=== PATIENT | female | born 1955 | race Caucasian/White ===

== ENCOUNTER 2020-04-24 15:28 | Emergency (ER) | payer OTHER ==
[2020-04-24 16:06] LABS: Absolute Neutrophil Ct (ANC) 4.92 (1.4-6.9); BASOPHIL % 0.3 % (0.0-0.4); Basophil (Absolute #) 0.02 (0-0.4); Eosinophil % 0.4 % (0.00-5.0); Eosinophil (Absolute #) 0.03 (0-0.5); Hematocrit 41.3 % (35-47); Lymphocyte (Absolute #) 1.45 (1.0-4.6); Lymphocytes % 20.1 % (24.0-44.0); Mean Corpuscular Hemoglobin 31.5 pg (26-32); Mean Corpuscular Hgb Concent. 33.9 g/dl (32-36); Monocyte (Absolute #) 0.81 (0.0-1.3); Monocytes % 11.2 % (0.0-12.0); Platelet Count 357 K/mm3 (150-450); Red Blood Count 4.44 M/mm3 (4.1-5.4); Red Cell Distribution Width 12.5 % (11.5-14.0); White Blood Count 7.2 K/mm3 (4.0-10.5)
[2020-04-24 16:13] LABS: ALKALINE PHOSPHATASE 66 U/L (38-126); ANION GAP 13.9 MEQ/L (5-15); BLOOD UREA NITROGEN 3 mg/dL (7-17); CHLORIDE 94 mmol/L (98-107); Calcium 9.2 mg/dL (8.4-10.2); Carbon Dioxide 28 mmol/L (22-30); Creatinine 1 0.45 mg/dL (0.52-1.04); Glucose 125 mg/dL (74-106); Potassium 3.5 mmol/L (3.5-5.1); SGOT/AST 28 U/L (14-36); SGPT/ALT 18 U/L (0-35); SODIUM 133 mmol/L (137-145); Total Protein 8.3 g/dL (6.3-8.2)
[2020-04-24 16:17] LABS: Appearance CLEAR (CLEAR); Bilirubin NEGATIVE (NEGATIVE); Blood NEGATIVE Ery/ul (0-5); Glucose 150 mg/dL (NEGATIVE); Ketones NEGATIVE (NEGATIVE); Leukocyte Esterase NEGATIVE (NEGATIVE); Nitrite NEGATIVE (NEGATIVE); Protein,Urine Dip NEGATIVE (Negative); Specific Gravity 1.002 (1.005-1.025); Urobilinogen NEGATIVE mg/dL (0-1)
--- NOTE | 2020-04-24 16:48 | ERPHSYRPT ---
- History of Present Illness Time Seen by Provider: 04/24/20 15:59 Source: patient Exam Limitations: no limitations Patient Subjective Stated Complaint: HTN Triage Nursing Assessment: Patient ambulated back to ED and transferred self to bed. Patient A+O X3. Patient's skin pink, warm and dry. Patient complains of high blood pressure that started this am. Patient states she was being treated for an ear infection and started on unknown atb and started feeling bad on Friday. Patient states her blood pressure was elevated today 177/84 with her not feeling well she went to Dr. Pereira sent patient to ER for eval. Patient' s lungs clear a/p jose. Heart tones audible. No edema noted. Physician History: 64 yo wf w increased BP x2 days. Pt states that she has not felt right. She has a mild headache but denies N/V/D/chest pain/fever/focal weakness/dysuria/ hematuria. She is currently being treated for ROM. Timing/Duration: other (2 days) Modifying Factors: Improves With: nothing Associated Symptoms: headaches, No nausea, No vomiting, No abdominal pain, No shortness of breath, No heartburn, No diaphoresis, No cough, No chills, No chest pain, No fever, No loss of appetite, No malaise, No rash, No syncope, No seizure, No weakness Allergies/Adverse Reactions: codeine Allergy (Verified 04/24/20 15:37) epinephrine Allergy (Verified 04/24/20 15:37) Home Medications: Levothyroxine Sodium 75 Mcg [Synthroid 75 Mcg] 50 mcg PO DAILY 01/31/16 [ History] Simvastatin 40 mg [Zocor 40 mg] 40 mg PO DAILY 01/31/16 [History] Alprazolam 0.25 mg [xanAX 0.25 MG] 1 tab PO Q4H PRN PRN 04/24/20 [History] Lisinopril 10 mg [Zestril 10 MG] 0.5 tab PO BID 04/24/20 [History] Hx Influenza Vaccination/Date Given: No Hx Pneumococcal Vaccination/Date Given: No Immunizations Up to Date: Yes Travel Risk - International Travel Have you traveled outside of the country in past 3 weeks: No Have you or anyone close to you been diagnosed with or: No Do your reside in a community with a known COVID-19 case?: Yes If Yes where:: [facility] - Coronavirus Screening Has patient experienced Coronavirus symptoms: No - Review of Systems Constitutional: No Symptoms Eyes: No Symptoms Ears, Nose, & Throat: No Symptoms Respiratory: No Symptoms Cardiac: No Symptoms Abdominal/Gastrointestinal: No Symptoms Genitourinary Symptoms: No Symptoms Musculoskeletal: No Symptoms Skin: No Symptoms Neurological: No Symptoms, Headache, No Dizziness, No Focal Weakness, No Irritability, No Lethargy, No Paralysis, No Parasthesia, No Seizure, No Sensory Changes, No Speech Changes, No Tics, No Tremors, No Vertigo Psychological: No Symptoms Endocrine: No Symptoms Hematologic/Lymphatic: No Symptoms Immunological/Allergic: No Symptoms - Past Medical History Pertinent Past Medical History: Yes Neurological History: No Pertinent History ENT History: No Pertinent History Cardiac History: Hypertension Endocrine Medical History: Hypothyroidism Musculoskeletal History: No Pertinent History GI Medical History: Other History: No Pertinent History Psycho-Social History: Anxiety Female Reproductive Disorders: No Pertinent History Other Medical History: Gastroparesis - Past Surgical History Past Surgical History: Yes Neuro Surgical History: No Pertinent History Cardiac: No Pertinent History Respiratory: No Pertinent History Gastrointestinal: Cholecystectomy Genitourinary: No Pertinent History Musculoskeletal: No Pertinent History Female Surgical History: No Pertinent History - Social History Smoking Status: Never smoker Exposure to second hand smoke: Yes Drug Use: none Patient Lives Alone: No - Female History Hx Last Menstrual Period: ablation Hx Now: No - Nursing Vital Signs Nursing Vital Signs: Initial Vital Signs Temperature 98.0 F 04/24/20 15:42 Pulse Rate 92 H 04/24/20 15:42 Respiratory Rate 18 04/24/20 15:42 Blood Pressure 178/90 04/24/20 15:42 O2 Sat by Pulse Oximetry 100 04/24/20 15:42 Pain Scale Pain Intensity 0 - Physical Exam General Appearance: no apparent distress Eye Exam: PERRL/EOMI, eyes nml inspection, No scleral icterus Ears, Nose, Throat Exam: normal ENT inspection, TMs normal, pharynx normal, moist mucous membranes Neck Exam: normal inspection, non-tender, supple, full range of motion Respiratory Exam: normal breath sounds, lungs clear, airway intact, No respiratory distress Cardiovascular Exam: regular rate/rhythm, normal heart sounds, normal peripheral pulses Gastrointestinal/Abdomen Exam: soft, normal bowel sounds, No tenderness, No distention Pelvic Exam: not done Rectal Exam: deferred Back Exam: normal inspection, normal range of motion Extremity Exam: normal inspection, normal range of motion, No pedal edema, No swelling Neurologic Exam: alert, oriented x 3, cooperative, ecd II-XII nml as tested, normal mood/affect, nml cerebellar function, nml station & gait, sensation nml, motor deficits Skin Exam: normal color, warm, dry Lymphatic Exam: No adenopathy SpO2 Interpretation: normal SpO2: 100 O2 Delivery: Room Air - Course Nursing assessment & vital signs reviewed: Yes EKG Interpreted by Me: Other (NSR/Mildly increased QTc/No acute ST-T wave changes) - Radiology Exams Chest X-ray Interpretation: Discussed w/ radiologist (Nothing acute) - CT Exams Head CT Interpretation: Discussed w/radiologist, Other (Nothing acute) Ordered Tests: Active Orders 24 hr Category Date Time Status EKG-ER Only STAT Care 04/24/20 15:59 Active CHEST 2 VIEWS (PA AND LAT) Stat Exams 04/24/20 16:00 Completed HEAD WITHOUT CONTRAST [CT] Stat Exams 04/24/20 16:01 Completed CBC W DIFF Stat Lab 04/24/20 15:40 Completed CMP Stat Lab 04/24/20 15:40 Completed Lactic Acid Stat Lab 04/24/20 16:05 Completed TROPONIN Q3H Lab 04/24/20 15:40 Completed TROPONIN Q3H Lab 04/24/20 19:00 Ordered TROPONIN Q3H Lab 04/24/20 22:00 Ordered TROPONIN Q3H Lab 04/25/20 01:00 Ordered TROPONIN Q3H Lab 04/25/20 04:00 Ordered TSH [TSH, 3RD Generation] Stat Lab 04/24/20 15:40 Completed UA W/RFX UR CULTURE Stat Lab 04/24/20 15:40 Completed Lab/Rad Data: Laboratory Result Diagrams 04/24/20 15:40 04/24/20 15:40 Laboratory Results 04/24/20 04/24/20 04/24/20 Range/Units 16:05 15:40 15:40 WBC (4.0-10.5) K/mm3 RBC (4.1-5.4) M/mm3 Hgb (12.0-16.0) gm/dl Hct (35-47) % MCV (78-100) fl MCH (26-32) pg MCHC (32-36) g/dl RDW (11.5-14.0) % Plt Count (150-450) K/mm3 MPV (7.5-11.0) fl Gran % (36.0-66.0) % Eos # (Auto) (0-0.5) Absolute Lymphs (auto) (1.0-4.6) Absolute Monos (auto) (0.0-1.3) Lymphocytes % (24.0-44.0) % Monocytes % (0.0-12.0) % Eosinophils % (0.00-5.0) % Basophils % (0.0-0.4) % Absolute Granulocytes (1.4-6.9) Basophils # (0-0.4) Sodium (137-145) mmol/L Potassium (3.5-5.1) mmol/L Chloride (98-107) mmol/L Carbon Dioxide (22-30) mmol/L Anion Gap (5-15) MEQ/L BUN (7-17) mg/dL Creatinine (0.52-1.04) mg/dL Estimated GFR ML/MIN Glucose (74-106) mg/dL Lactic Acid 1.7 (0.4-2.0) Calcium (8.4-10.2) mg/dL Total Bilirubin (0.2-1.3) mg/dL AST (14-36) U/L ALT (0-35) U/L Alkaline Phosphatase (38-126) U/L Troponin I (0.000-0.034) ng/mL Serum Total Protein (6.3-8.2) g/dL Albumin (3.5-5.0) g/dL TSH 3rd Generation 8.040 H (0.47-4.68) mIU/L Urine Color COLORLESS (YELLOW) Urine Appearance CLEAR (CLEAR) Urine pH 8.0 (5-6) Ur Specific [place] 1.002 (1.005-1.025) Urine Protein NEGATIVE (Negative) Urine Ketones NEGATIVE (NEGATIVE) Urine Blood NEGATIVE (0-5) Marquez/ul Urine Nitrite NEGATIVE (NEGATIVE) Urine Bilirubin NEGATIVE (NEGATIVE) Urine Urobilinogen NEGATIVE (0-1) mg/dL Ur Leukocyte Esterase NEGATIVE (NEGATIVE) Urine WBC (Auto) NONE (0-5) /HPF Urine RBC (Auto) NONE (0-2) /HPF U Epithel Cells (Auto) NONE (FEW) /HPF Urine Bacteria (Auto) NONE (NEGATIVE) /HPF Urine Culture Reflexed NO (NO) Urine Glucose 150 (NEGATIVE) mg/dL 04/24/20 04/24/20 04/24/20 Range/Units 15:40 15:40 15:40 WBC 7.2 (4.0-10.5) K/mm3 RBC 4.44 (4.1-5.4) M/mm3 Hgb 14.0 (12.0-16.0) gm/dl Hct 41.3 (35-47) % MCV 93.0 (78-100) fl MCH 31.5 (26-32) pg MCHC 33.9 (32-36) g/dl RDW 12.5 (11.5-14.0) % Plt Count 357 (150-450) K/mm3 MPV 10.0 (7.5-11.0) fl Gran % 68.0 H (36.0-66.0) % Eos # (Auto) 0.03 (0-0.5) Absolute Lymphs (auto) 1.45 (1.0-4.6) Absolute Monos (auto) 0.81 (0.0-1.3) Lymphocytes % 20.1 L (24.0-44.0) % Monocytes % 11.2 (0.0-12.0) % Eosinophils % 0.4 (0.00-5.0) % Basophils % 0.3 (0.0-0.4) % Absolute Granulocytes 4.92 (1.4-6.9) Basophils # 0.02 (0-0.4) Sodium 133 L (137-145) mmol/L Potassium 3.5 (3.5-5.1) mmol/L Chloride 94 L (98-107) mmol/L Carbon Dioxide 28 (22-30) mmol/L Anion Gap 13.9 (5-15) MEQ/L BUN 3 L (7-17) mg/dL Creatinine 0.45 L (0.52-1.04) mg/dL Estimated GFR > 60.0 ML/MIN Glucose 125 H (74-106) mg/dL Lactic Acid (0.4-2.0) Calcium 9.2 (8.4-10.2) mg/dL Total Bilirubin 0.40 (0.2-1.3) mg/dL AST 28 (14-36) U/L ALT 18 (0-35) U/L Alkaline Phosphatase 66 (38-126) U/L Troponin I < 0.012 (0.000-0.034) ng/mL Serum Total Protein 8.3 H (6.3-8.2) g/dL Albumin 5.0 (3.5-5.0) g/dL TSH 3rd Generation (0.47-4.68) mIU/L Urine Color (YELLOW) Urine Appearance (CLEAR) Urine pH (5-6) Ur Specific [place] (1.005-1.025) Urine Protein (Negative) Urine Ketones (NEGATIVE) Urine Blood (0-5) Marquez/ul Urine Nitrite (NEGATIVE) Urine Bilirubin (NEGATIVE) Urine Urobilinogen (0-1) mg/dL Ur Leukocyte Esterase (NEGATIVE) Urine WBC (Auto) (0-5) /HPF Urine RBC (Auto) (0-2) /HPF U Epithel Cells (Auto) (FEW) /HPF Urine Bacteria (Auto) (NEGATIVE) /HPF Urine Culture Reflexed (NO) Urine Glucose (NEGATIVE) mg/dL - Progress Progress: improved Progress Note: 04/24/20 17:46 Pt stable throughout stay w systolic bp 141 before discharge without tx. TSH slightly elevated but will leave to PCP to up Synthyroid. - Departure Departure Disposition: Home Clinical Impression: Hypertension, Anxiety Condition: Stable Critical Care Time: No Referrals: SUMI CHOWDARY DO [Primary Care Provider] - Additional Instructions: Follow up with your family MD in 1-2 days. Continue with Lisinopril twice a day. Xanax as needed. Return to ER for focal weakness/chest pain/shortness of breath/systolic blood pressure greater than 190/Diastolic blood pressure greater than 110
--- NOTE | 2020-04-24 16:58 | XRAY ---
Indication: Headache and lethargy. Hypotension. Comparison: None PA/lateral chest demonstrates normal heart and lungs. Bony thorax intact with mild degenerative changes. Impression: Nonacute chest.
--- NOTE | 2020-04-24 17:01 | XRAY ---
Indication: Headache and face numbness. Hypo-pressure. Multiple contiguous axial images obtained through the head without contrast. Comparison: None Posterior right temporal lobe demonstrates 1.5 cm round chunky calcification without edema/mass effect favored to be benign and probable sequela to old inflammation/infection. No acute intracranial hemorrhage, abnormal extra-axial fluid collection, or mass effect. Fourth ventricle is midline without hydrocephalus. Guzman-white matter differentiation preserved. Bony calvarium intact. Visualized paranasal sinuses and mastoid air cells are clear. Impression: Benign chunky calcification in the right temporal lobe. Remaining CT head without contrast exam is negative.
[2020-04-24 17:56] VITALS: BP 156/86; PULSE 72; O2SAT 99
== END 2020-04-24 18:00 | disposition home or self-care (01) ==
LOC: ED 15:28
DX: I10 Essential (primary) hypertension (principal); F41.9 Anxiety disorder, unspecified; R51 Headache; E03.9 Hypothyroidism, unspecified; R94.6 Abnormal results of thyroid function studies
CPT/HCPCS: 36000; 36415; 70450; 71046; 80053; 81001; 83605; 84443; 84484; 85025; 93005; 99284

== ENCOUNTER 2023-11-21 14:32 | Emergency (ER) | payer MEDICARE ==
--- NOTE | 2023-11-21 14:38 | ERPHSYRPT ---
- History of Present Illness Time Seen by Provider: 11/21/23 14:38 Historian: patient Exam Limitations: no limitations Physician History: This is a thin 68-year-old white female patient of Dr. Britt who was sent over to our emergency department from the urgent care clinic where the patient was complaining of 1 week history of mucousy blood-tinged passage rectally wi thout significant stool present. Patient has a chronic history of constipation intermittently over the last several years. Patient reports a normal colonoscopy from a few years ago. Patient states she does not eat much. She has lost weight. Patient states that she does not eat much because it causes her to have cramping pain and has been diagnosed with gastroparesis in the past. Patient has a history of hyperlipidemia, hypertension, hypothyroidism and anxiety. Patient's constipation has not responded to milk of magnesia and MiraLAX. Patient has associated bilateral low back pain Timing/Duration: week(s) (1), worse Quality: other (Toe pain and pressure) Pain Radiation: no radiation Severity of Pain-Max: mild Severity of Pain-Current: mild Associated Symptoms: other (Bilateral lower back achiness and pressure) Previous symptoms: no prior history, no recent treatment Allergies/Adverse Reactions: codeine Allergy (Verified 11/21/23 14:57) epinephrine Allergy (Verified 11/21/23 14:57) Home Medications: Levothyroxine Sodium 75 Mcg [Synthroid 75 Mcg] 75 mcg PO DAILY 01/31/16 [History] Simvastatin 40 mg [Zocor 40 mg] 10 mg PO DAILY 01/31/16 [History] Lisinopril 10 mg [Zestril 10 MG] 0.5 tab PO BID 04/24/20 [History] Escitalopram Oxalate [Lexapro] 10 mg PO QAM 11/21/23 [History] Hx Influenza Vaccination/Date Given: No Hx Pneumococcal Vaccination/Date Given: No Travel Risk - International Travel Have you traveled outside of the country in past 3 weeks: No - Coronavirus Screening Are you exhibiting any of the following symptoms?: No Close contact with a COVID-19 positive Pt in past 14-21 Days: No - Review of Systems Constitutional: No Symptoms Eyes: No Symptoms Ears, Nose, & Throat: No Symptoms Respiratory: No Symptoms Cardiac: No Symptoms Abdominal/Gastrointestinal: Hematochezia (With mucousy passage of rectally) Genitourinary Symptoms: No Symptoms Musculoskeletal: Back Pain (Lower back pain/pressure) Skin: No Symptoms Neurological: No Symptoms Psychological: No Symptoms Endocrine: No Symptoms Hematologic/Lymphatic: No Symptoms Immunological/Allergic: No Symptoms All Other Systems: Reviewed and Negative - Past Medical History Pertinent Past Medical History: Yes Neurological History: No Pertinent History ENT History: No Pertinent History Cardiac History: Hypertension Endocrine Medical History: Hypothyroidism Musculoskeletal History: No Pertinent History GI Medical History: Other History: No Pertinent History Psycho-Social History: Anxiety Female Reproductive Disorders: No Pertinent History Other Medical History: Gastroparesis - Past Surgical History Past Surgical History: Yes Neuro Surgical History: No Pertinent History Cardiac: No Pertinent History Respiratory: No Pertinent History Gastrointestinal: Cholecystectomy Genitourinary: No Pertinent History Musculoskeletal: No Pertinent History Female Surgical History: No Pertinent History - Social History Smoking Status: Never smoker Exposure to second hand smoke: Yes Drug Use: none Patient Lives Alone: No - Nursing Vital Signs Nursing Vital Signs: Initial Vital Signs Temperature 98.4 F 11/21/23 14:36 Pulse Rate 84 11/21/23 14:36 Respiratory Rate 16 11/21/23 14:36 Blood Pressure 156/84 11/21/23 14:36 O2 Sat by Pulse Oximetry 94 L 11/21/23 14:36 Pain Scale Pain Intensity 5 - Physical Exam General Appearance: no apparent distress, alert, anxiety, thin Eye Exam: PERRL/EOMI, eyes nml inspection Ears, Nose, Throat Exam: normal ENT inspection, moist mucous membranes Neck Exam: normal inspection, non-tender, supple, full range of motion Respiratory Exam: normal breath sounds, lungs clear, respiratory distress, No chest tenderness Cardiovascular Exam: regular rate/rhythm, normal heart sounds, normal peripheral pulses Gastrointestinal/Abdomen Exam: soft, normal bowel sounds, No tenderness Pelvic Exam: not done Rectal Exam: not done Back Exam: normal inspection, normal range of motion, No CVA tenderness, No vertebral tenderness Extremity Exam: normal inspection, normal range of motion, pelvis stable Neurologic Exam: alert, oriented x 3, cooperative, pens and pencils dipper II-XII nml as tested, normal mood/affect, nml cerebellar function, nml station & gait, sensation nml Skin Exam: normal color, warm, dry Lymphatic Exam: No adenopathy SpO2 Interpretation: normal O2 Delivery: Room Air - Course Nursing assessment & vital signs reviewed: Yes Ordered Tests: Active Orders 24 hr Category Date Time Status ABDOMEN AND PELVIS W/0 CONTRAS [CT] Stat Exams 11/21/23 14:57 Taken AMYLASE Stat Lab 11/21/23 15:15 Completed CBC W DIFF Stat Lab 11/21/23 15:15 Completed CMP Stat Lab 11/21/23 15:15 Completed LIPASE Stat Lab 11/21/23 15:15 Completed Medication Summary Discontinued Medications Generic Name Dose Route Start Last Admin Trade Name Freq PRN Reason Stop Dose Admin Potassium Chloride 20 meq 11/21/23 16:16 Potassium Chloride Tab 10 Meq Tab PO 11/21/23 16:17 STAT ONE Lab/Rad Data: Laboratory Result Diagrams 11/21/23 15:15 11/21/23 15:15 Laboratory Results 11/21/23 11/21/23 Range/Units 15:15 15:15 WBC 7.0 (4.0-10.5) x10^3/uL RBC 4.17 (4.1-5.4) x10^6/uL Hgb 12.9 (12.0-16.0) g/dL Hct 38.9 (35-47) % MCV 93.3 (78-100) fL MCH 30.9 (26-32) pg MCHC 33.2 (32-36) g/dL RDW 12.2 (11.5-14.0) % Plt Count 253 (150-450) x10^3/uL MPV 9.6 (7.5-11.0) fL Gran % 63.8 (36.0-66.0) % Immature Gran % (Auto) 0.9 H (0.00-0.4) % Nucleat RBC Rel Count 0.0 (0.00-0.1) % Eos # (Auto) 0.26 (0-0.5) x10^3/uL Immature Gran # (Auto) 0.06 H (0.00-0.03) x10^3u/L Absolute Lymphs (auto) 1.35 (1.0-4.6) x10^3/uL Absolute Monos (auto) 0.83 (0.0-1.3) x10^3/uL Absolute Nucleated RBC 0.00 (0.00-0.01) x10^3u/L Lymphocytes % 19.2 L (24.0-44.0) % Monocytes % 11.8 (0.0-12.0) % Eosinophils % 3.7 (0.00-5.0) % Basophils % 0.6 (0.0-0.4) % Absolute Granulocytes 4.50 (1.4-6.9) x10^3/uL Basophils # 0.04 (0-0.4) x10^3/uL Sodium 130 L (137-145) mmol/L Potassium 3.3 L (3.5-5.1) mmol/L Chloride 93 L (98-107) mmol/L Carbon Dioxide 32 H (22-30) mmol/L Anion Gap 8.2 (5-15) MEQ/L BUN 4 L (7-17) mg/dL Creatinine 0.55 (0.52-1.04) mg/dL Estimated GFR 101.0 ML/MIN Glucose 103 (74-106) mg/dL Calcium 8.7 (8.4-10.2) mg/dL Total Bilirubin 0.70 (0.2-1.3) mg/dL AST 28 (14-36) U/L ALT 18 (0-35) U/L Alkaline Phosphatase 87 (38-126) U/L Serum Total Protein 7.4 (6.3-8.2) g/dL Albumin 4.4 (3.5-5.0) g/dL Amylase 44 (30-110) U/L Lipase 31 (23-300) U/L - Progress Progress Note: 11/21/23 15:06 This patient's medical issue is 1 of moderate complexity. The level complex in the workup performed is based on review the patient's past medical history, review the patient's medication list, review of the patient's drug allergy list and history of present illness and physical findings on examination. The workup includes CBC, CMP, amylase, lipase and CT scan of the abdomen pelvis. We will evaluate and look for evidence of fecal stasis/'s stool in the left/sigmoid colon and rectum. If there is significant stool in this area, we will order a soapsuds enema. Patient will need, at some point, referral to gastroenterology. I briefly discussed this with the patient. 11/21/23 16:17 I reviewed and interpreted the laboratory data results. This patient has mild hypokalemia and mild hyponatremia. The CT scan of the abdomen pelvis without contrast was interpreted by the radiologist and I reviewed the impression. Patient states mild fecal stasis with mild proctitis. The mild proctitis likely is the cause of this patient's local anorectal discomfort and passage of bloody mucousy stool. We will remotely send a prescription to her pharmacy to help treat this. Counseled pt/family regarding: lab results, diagnosis, need for follow-up, rad results Medical Desision Making - Diagnostic Testing Diagnostic test were ordered, analyzed, and reviewed by me: Yes Radiological Interpretation: Reviewed by me, Teleradiologist Report - Risk of complications The pt has a mod risk of morbidity or mortality based on: Need for prescription drug management - Departure Departure Disposition: Home Clinical Impression: Proctitis, Hyponatremia, Hypokalemia Condition: Stable Critical Care Time: No Referrals: YOSEF BRITT DO [Primary Care Provider] - Follow up/PCP as directed Additional Instructions: Take your medications as prescribed. Sitz bath with warm soapy water or Epsom salts 2 times a day. Call your primary care provider on November 25 to make arranges for follow-up appointment in the next 3 to 5 days for referral to a radiology physician assistant. Prescriptions: Prednisone 10 mg [Deltasone 10 mg] 10 mg PO TID #12 tablet Doxycycline Hyclate 100 mg [Vibramycin 100 MG] 100 mg PO BID #14 tab
[2023-11-21 14:46] VITALS: PULSE 84; RESP 16; TEMP 98.4
[2023-11-21 15:22] LABS: BASOPHIL % 0.6 % (0.0-0.4); Basophil (Absolute #) 0.04 x10^3/uL (0-0.4); Eosinophil % 3.7 % (0.00-5.0); Eosinophil (Absolute #) 0.26 x10^3/uL (0-0.5); Hematocrit 38.9 % (35-47); Hemoglobin 12.9 g/dL (12.0-16.0); IMMATURE GRAN # 0.06 x10^3u/L (0.00-0.03); IMMATURE GRAN % 0.9 % (0.00-0.4); Lymphocyte (Absolute #) 1.35 x10^3/uL (1.0-4.6); Lymphocytes % 19.2 % (24.0-44.0); Mean Cell Volume 93.3 fL (78-100); Mean Corpuscular Hemoglobin 30.9 pg (26-32); Mean Corpuscular Hgb Concent. 33.2 g/dL (32-36); Mean Platelet Volume 9.6 fL (7.5-11.0); Monocyte (Absolute #) 0.83 x10^3/uL (0.0-1.3); Monocytes % 11.8 % (0.0-12.0); Neutrophil % 63.8 % (36.0-66.0); Platelet Count 253 x10^3/uL (150-450); Red Blood Count 4.17 x10^6/uL (4.1-5.4); Red Cell Distribution Width 12.2 % (11.5-14.0)
[2023-11-21 15:32] LABS: ALBUMIN 4.4 g/dL (3.5-5.0); ANION GAP 8.2 MEQ/L (5-15); BILIRUBIN,TOTAL 0.7 mg/dL (0.2-1.3); Calcium 8.7 mg/dL (8.4-10.2); Creatinine 1 0.55 mg/dL (0.52-1.04); Potassium 3.3 mmol/L (3.5-5.1); Total Protein 7.4 g/dL (6.3-8.2)
[2023-11-21 16:12] VITALS: BP 136/72; O2SAT 98
[2023-11-21] MEDS ORDERED: Klor Con PO ONE ×2 (16:16→16:20)
--- NOTE | 2023-11-21 21:37 | XRAY ---
Indication: Constipation. Rectal pain. Bloody stool. Multiple contiguous axial images obtained through the abdomen and pelvis without contrast. Comparison: None Lung bases clear. Heart not enlarged. Noncontrasted stomach and bowel loops appear nonobstructed. Appendix not visualized. Mild diffuse scattered colonic fecal debris. Rectum demonstrates circumferential wall thickening with perirectal stranding favoring proctitis. No free fluid/air. Small hepatic calcified granuloma and cholecystectomy. Remaining liver, pancreas, spleen, adrenal glands, kidneys, ureters, bladder, and aorta are unremarkable for noncontrast exam. Osseous structures intact with minimal/mild degenerative changes throughout the spine. Bilateral L5 spondylolysis with 7 mm anterolisthesis. Impression: 1. Rectal circumferential wall thickening with perirectal stranding favoring proctitis. 2. Mild diffuse fecal stasis. 3. Multilevel degenerative spondylosis and L5 spondylolysis with grade 2 listhesis.
== END 2023-11-21 16:36 | disposition home or self-care (01) ==
LOC: ED 14:32
DX: K62.89 Other specified diseases of anus and rectum (principal); E87.1 Hypo-osmolality and hyponatremia; E87.6 Hypokalemia; E78.5 Hyperlipidemia, unspecified; I10 Essential (primary) hypertension; M54.50 Low back pain, unspecified; Z79.52 Long term (current) use of systemic steroids; Z79.899 Other long term (current) drug therapy
CPT/HCPCS: 36415; 74176; 80053; 82150; 83690; 85025; 99283; A9270-GY

== ENCOUNTER 2023-12-30 05:56 | Day surgery (SDC) | payer MEDICARE ==
[2023-12-30 06:23] VITALS: RESP 16; O2SAT 100
[2023-12-30] MEDS ORDERED: Lactated Ringers 1,000 ML IV SCH (06:30)
[2023-12-30] MEDS ORDERED: DIPRIVAN 200 MG/20 ML IV ONE ×2 (07:20→07:52)
[2023-12-30] MEDS ORDERED: Versed 2 MG/2 ML Injection ONE (07:20)
[2023-12-30 08:28] VITALS: TEMP 97.3
--- NOTE | 2023-12-30 08:33 | OP ---
SURGERY DATE/TIME: 12/30/2023 0731 PREOPERATIVE DIAGNOSIS: Screening exam. POSTOPERATIVE DIAGNOSIS: Normal colon. PROCEDURE: Colonoscopy. SURGEON: Dr. Muniz. ANESTHESIA: Medications given by anesthesia department. HISTORY: The patient is a 68-year-old white female presenting now for screening colonoscopy. The patient reports no particular problems at this time. The patient was described the risks of the procedure including the risk of perforation, phlebitis, untoward reaction to medication, bleeding and missed lesions. The patient verbalized her understanding and desired to have the procedure performed. DESCRIPTION OF PROCEDURE: The patient was given the medications by the anesthesia department. She had continuous pulse oximetry, ECG monitoring and intermittent blood pressure monitoring during the examination. She was placed in the left lateral decubitus position. A digital rectal examination revealed normal anal sphincter tone and no masses. External hemorrhoids were noted. The flexible Olympus pediatric colonoscope was used to intubate the rectum. A view of the colon was developed sequentially to the cecum. Upon insertion and withdrawal, including a retroflex view in the rectum, no mucosal lesions were encountered. The scope was removed from the patient who tolerated the procedure well and was sent back to OP recovery in good condition. The prep was noted to be fair to good with large amounts of liquid stool in the colon which was suctioned clear to provide a good visualization of the colon.
[2023-12-30 08:45] VITALS: BP 138/68; PULSE 60
== END 2023-12-30 08:58 | disposition home or self-care (01) ==
LOC: SDC 05:56
PROVIDERS: ATTEND Family Medicine
DX: Z12.11 Encounter for screening for malignant neoplasm of colon (principal); K64.4 Residual hemorrhoidal skin tags
CPT/HCPCS: 93005; G0121; J2250; J2704

== ENCOUNTER 2024-11-29 21:34 | Observation (INO) | payer MEDICARE ==
[2024-11-29 23:12] LABS: Appearance Cloudy (Clear); Bacteria None Seen /HPF (None Seen); Bilirubin Negative (Negative); Blood Small (Negative); Epithelial Cells Rare /HPF (None Seen); Glucose, Urine Negative (Negative); Ketones 15 (Negative); Leukocyte Esterase Small (Negative); Nitrite Negative (Negative); Ph 5.5 (4.6-8.0); Protein,Urine Dip Trace (Negative); Specific Gravity 1.015 (1.005-1.030); Urobilinogen 0.2 mg/dL (0.2)
[2024-11-29 23:20] LABS: Absolute Neutrophil Ct (ANC) 13.23 x10^3/uL (1.56-6.13); BASOPHIL % 0.1 % (0.1-1.2); Basophil (Absolute #) 0.02 x10^3/uL (0.01-0.08); Eosinophil % 0.1 % (0.7-5.8); Eosinophil (Absolute #) 0.02 x10^3/uL (0.04-0.36); Hematocrit 41.9 % (34.1-44.9); Hemoglobin 14.2 g/dL (11.2-15.7); IMMATURE GRAN # 0.07 x10^3u/L (0.001-0.031); IMMATURE GRAN % 0.5 % (0.001-0.429); Lymphocyte (Absolute #) 0.19 x10^3/uL (1.18-3.74); Lymphocytes % 1.3 % (19.3-51.7); Mean Cell Volume 89.9 fL (79.4-94.8); Mean Corpuscular Hemoglobin 30.5 pg (25.6-32.2); Mean Corpuscular Hgb Concent. 33.9 g/dL (32.2-35.5); Mean Platelet Volume 9.2 fL (9.4-12.3); Monocyte (Absolute #) 0.67 x10^3/uL (0.24-0.86); Monocytes % 4.7 % (4.7-12.5); Neutrophil % 93.3 % (34.0-71.1); Platelet Count 257 x10^3/uL (182-369); Red Blood Count 4.66 x10^6/uL (3.93-5.22); Red Cell Distribution Width 12.3 % (11.7-14.4); White Blood Count 14.2 x10^3/uL (3.98-10.04)
[2024-11-29] MEDS ORDERED: Zofran 4 MG/2 ML VIAL ONE (23:31)
[2024-11-29] MEDS: Sodium Chloride 0.9% 1000 ML 1,000 ML IV SCH (23:34)
[2024-11-29] MEDS: Zofran 4 MG/2 ML VIAL IV ONE (23:34)
[2024-11-29 23:35] LABS: ALBUMIN 4.5 g/dL (3.5-5.0); ANION GAP 11.4 MEQ/L (5-15); BILIRUBIN,TOTAL 0.6 mg/dL (0.2-1.3); Calcium 9.2 mg/dL (8.4-10.2); Creatinine 1 0.6 mg/dL (0.52-1.04); EST GLOMERULAR FILTRATION RATE 98.3 ML/MIN; Potassium 4.2 mmol/L (3.5-5.1); Total Protein 7.1 g/dL (6.3-8.2)
[2024-11-29 23:52] LABS: Slide Review 1 YES
[2024-11-29 23:56] LABS: INFLUENZA A NEGATIVE (NEGATIVE); INFLUENZA B NEGATIVE (NEGATIVE); RESPIRATORY SYNCTIAL VIRUS NEGATIVE (NEGATIVE); SARS-CoV-2 Xpert Express NEGATIVE (NEGATIVE)
--- NOTE | 2024-11-30 00:07 | XRAY ---
CLINICAL HISTORY: pain COMPARISON: 21 November 2023. TECHNIQUE: Contiguous axial images were obtained from the level of the diaphragm to the pubic symphysis without intravenous or oral contrast. Coronal and sagittal reconstructions were likewise performed and indicated to increase the sensitivity for detecting clinically relevant pathology. CT scan was performed according to ALARA (as low as reasonably achievable). FINDINGS: The visualized lung bases are clear. Evaluation of the abdominal and pelvic visceral organs is limited without intravenous contrast. The unenhanced liver is grossly unremarkable. Stable calcified focus along subdiaphragmatic aspect is noted on the right side, possible calcified granuloma within the liver. Gallbladder is not visualized, cholecystectomy status. The unenhanced spleen is grossly unremarkable. The unenhanced pancreas is grossly unremarkable. The adrenal glands are grossly unremarkable. The kidneys are normal in size. There is no hydronephrosis. No perinephric stranding is seen. The ureters are normal in caliber. No evidence of focal or diffuse bowel wall thickening or evidence of bowel obstruction is seen. The urinary bladder is normal in contour. No adenopathy or fluid collections are seen. Pelvic viscera are grossly unremarkable. The aorta is normal in caliber. No aggressive appearing osseous lesions are identified. Unchanged grade II anterolisthesis of L5 over S1 vertebra with bilateral spondylolysis. Severe bilateral neural foraminal stenosis is noted at this level. Rest of the findings are unchanged compared to the previous CT scan. IMPRESSION: 1. No acute abnormality detected. 2. Stable calcified focus along subdiaphragmatic aspect is noted on the right side, possible calcified granuloma within the liver. 3. Previous study revealed mesorectal and presacral fat stranding. This is not seen in the current study. 4. Unchanged grade II anterolisthesis of L5 over S1 vertebra with bilateral spondylolysis. Severe bilateral neural foraminal stenosis is noted at this level. 5. Fecal loading of large bowel is seen. No significant interval new finding is noted as compared to the previous CT scan. Electronically Signed by: Kleber Delacruz MD. (11/30/2024 00:03:40 EST)
--- NOTE | 2024-11-30 00:16 | ERPHSYRPT ---
- History of Present Illness Time Seen by Provider: 11/29/24 22:50 Source: patient Exam Limitations: no limitations Patient Subjective Stated Complaint: since 6pm tonight, vomiting and dry heaves, belly pain all over Triage Nursing Assessment: Pt ambulated into ER without diff, spouse at bedside. Pt c/o nausea since 10am and vomiting began around 6pm tonight. Pt c/o "belly gurgling", denies any diarrhea. Abd soft, flat with hyperactive bs x4 quad, nontender on palpation. Physician History: 69-year-old female presents to our ED for evaluation of nausea vomiting abdominal pain. Patient reports her nausea started at approximately 10 AM this morning. However she began to vomit at around 6 PM this evening. Patient complains of diffuse abdominal pain. No trauma no fever. No diarrhea no rash. Symptoms are constant. Symptoms are moderate in intensity. No specific worsening or improving factors. Patient denies a history of the same. She otherwise feels well. at bedside. They voiced no other complaints or concerns at this time. Portions of this note were created with voice recognition technology. There may be grammatical, spelling, punctuation or sound alike errors Timing/Duration: today Severity: moderate Modifying Factors: Improves With: nothing Associated Symptoms: denies symptoms Allergies/Adverse Reactions: codeine Allergy (Intermediate, Verified 11/29/24 22:45) Nausea and Vomiting epinephrine Allergy (Intermediate, Verified 11/29/24 22:45) unknown Home Medications: Levothyroxine Sodium 75 Mcg [Synthroid 75 Mcg] 50 mcg PO DAILY 01/31/16 [History] Simvastatin 40 mg [Zocor 40 mg] 10 mg PO HS 01/31/16 [History] Lisinopril 10 mg [Zestril 10 MG] 0.5 tab PO DAILY 04/24/20 [History] ALPRAZolam 0.25 MG [xanAX 0.25 MG] 0.25 mg PO UD PRN 12/11/23 [History] PARoxetine HCL [Paroxetine HCl] 10 mg PO DAILY 12/11/23 [History] Hx Tetanus, Diphtheria Vaccination/Date Given: Yes Hx Influenza Vaccination/Date Given: No Hx Pneumococcal Vaccination/Date Given: No Travel Risk - International Travel Have you traveled outside of the country in past 3 weeks: No - Emerging Infectious Disease Are you exhibiting symptoms associated with any current EIDs: Yes Symptoms: Abdominal Pain, Headaches/Body Aches/, Vomitting - Review of Systems Constitutional: No Symptoms, No Fever, No Chills Eyes: No Symptoms Ears, Nose, & Throat: No Symptoms Respiratory: No Symptoms, No Cough, No Dyspnea Cardiac: No Symptoms, No Chest Pain, No Edema, No Syncope Abdominal/Gastrointestinal: No Symptoms, No Abdominal Pain, No Nausea, No Vomiting, No Diarrhea Genitourinary Symptoms: No Symptoms, No Dysuria Musculoskeletal: No Symptoms, No Back Pain, No Neck Pain Skin: No Symptoms, No Rash Neurological: No Symptoms, No Dizziness, No Focal Weakness, No Sensory Changes Psychological: No Symptoms Endocrine: No Symptoms Hematologic/Lymphatic: No Symptoms Immunological/Allergic: No Symptoms All Other Systems: Reviewed and Negative - Past Medical History Pertinent Past Medical History: Yes Neurological History: No Pertinent History ENT History: No Pertinent History Cardiac History: High Cholesterol, Hypertension Endocrine Medical History: Hypothyroidism Musculoskeletal History: No Pertinent History GI Medical History: Gallbladder Disease, Other History: No Pertinent History Psycho-Social History: Anxiety Female Reproductive Disorders: No Pertinent History Other Medical History: Gastroparesis, proctisis - Past Surgical History Past Surgical History: Yes Neuro Surgical History: No Pertinent History Cardiac: No Pertinent History Respiratory: No Pertinent History Gastrointestinal: Cholecystectomy Genitourinary: No Pertinent History Musculoskeletal: No Pertinent History Female Surgical History: Hysterectomy Other Surgical History: colonscopy - Social History Smoking Status: Never smoker Exposure to second hand smoke: Yes Drug Use: marijuana Patient Lives Alone: No - Social Determinants of Health Will the patient participate in the screening: Yes Do you worry about a steady place to live?: No Do you have any problems with any of the following?: No known problems In the past 12 months,have you had to go without utilities?: No Transportation Issues: No Has anyone in your support network made you feel unsafe?: No Have you or anyone in your house had to go without enough: No - Nursing Vital Signs Nursing Vital Signs: Initial Vital Signs Temperature 97.6 F 11/29/24 22:35 Pulse Rate 100 H 11/29/24 22:35 Respiratory Rate 17 11/29/24 22:35 Blood Pressure 136/71 11/29/24 22:35 O2 Sat by Pulse Oximetry 99 11/29/24 22:35 Pain Scale Pain Intensity 5 - Physical Exam General Appearance: no apparent distress, alert Eye Exam: PERRL/EOMI, eyes nml inspection Ears, Nose, Throat Exam: normal ENT inspection, TMs normal, pharynx normal, moist mucous membranes Neck Exam: normal inspection, non-tender, supple, full range of motion Respiratory Exam: normal breath sounds, lungs clear, No respiratory distress Cardiovascular Exam: regular rate/rhythm, normal heart sounds, normal peripheral pulses Gastrointestinal/Abdomen Exam: soft, normal bowel sounds, tenderness (Generalized abdominal tenderness), No mass Back Exam: normal inspection, normal range of motion, No CVA tenderness, No vertebral tenderness Extremity Exam: normal inspection, normal range of motion, pelvis stable Neurologic Exam: alert, oriented x 3, cooperative, normal mood/affect, nml cerebellar function, nml station & gait, sensation nml, No motor deficits Skin Exam: normal color, warm, dry, No rash Lymphatic Exam: No adenopathy SpO2 Interpretation: normal SpO2: 99 O2 Delivery: Room Air - Course Nursing assessment & vital signs reviewed: Yes - CT Exams Abdomen/Pelvis CT Interpretation: Tele-radiologist Report (Fecal loading large bowel otherwise no acute process observed) Ordered Tests: Active Orders 24 hr Category Date Time Status IV Insertion STAT Care 11/29/24 23:04 Active ABDOMEN AND PELVIS W/0 CONTRAS [CT] Stat Exams 11/29/24 23:05 Completed CBC W DIFF Stat Lab 11/29/24 23:15 Completed CMP Stat Lab 11/29/24 23:15 Completed CULTURE,URINE Stat Lab 11/29/24 22:59 Received LIPASE Stat Lab 11/29/24 23:15 Completed TROPONIN Q4H Lab 11/29/24 23:15 Completed TROPONIN Q4H Lab 11/30/24 03:15 Ordered TROPONIN Q4H Lab 11/30/24 07:15 Ordered UA W/RFX UR CULTURE Stat Lab 11/29/24 22:59 Completed Medication Summary Generic Name Dose Route Start Last Admin Trade Name Freq PRN Reason Stop Dose Admin Sodium Chloride 1,000 mls @ 250 mls/hr 11/29/24 23:15 11/29/24 23:34 Sodium Chloride 0.9% 1000 Ml IV 12/29/24 23:14 250 mls/hr .Q4H FLORENTINO Administration Discontinued Medications Generic Name Dose Route Start Last Admin Trade Name Freq PRN Reason Stop Dose Admin Ceftriaxone Sodium 1 gm in 100 mls @ 200 mls/hr 11/30/24 00:17 11/30/24 00:22 Rocephin 1 Gm / 100 Ml Nacl IV 11/30/24 00:46 200 mls/hr STAT ONE 200 mls/hr Administration Ceftriaxone Sodium Confirm 11/30/24 00:19 Rocephin 1 Gm / 100 Ml Nacl Administered 11/30/24 00:20 Dose 1 gm in 100 mls @ ud IV .STK-MED ONE Ketorolac Tromethamine Confirm 11/30/24 00:37 Ketorolac Tromethamine 30 Mg/Ml Inj Administered 11/30/24 00:38 Dose 30 mg .ROUTE .STK-MED ONE Ketorolac Tromethamine 30 mg 11/30/24 00:41 11/30/24 00:41 Ketorolac Tromethamine 30 Mg/Ml Inj IV 11/30/24 00:42 30 mg STAT ONE Administration Ondansetron HCl Confirm 11/29/24 23:31 Ondansetron Hcl 4 Mg/2 Ml Vial Administered 11/29/24 23:32 Dose 4 mg .ROUTE .STK-MED ONE Ondansetron HCl 4 mg 11/29/24 23:33 11/29/24 23:34 Ondansetron Hcl 4 Mg/2 Ml Vial IV 11/29/24 23:34 4 mg STAT ONE Administration Ondansetron HCl 4 mg 11/30/24 00:52 11/30/24 01:16 Ondansetron Hcl 4 Mg/2 Ml Vial IV 11/30/24 00:53 4 mg STAT ONE Administration Ondansetron HCl Confirm 11/30/24 01:09 Ondansetron Hcl 4 Mg/2 Ml Vial Administered 11/30/24 01:10 Dose 4 mg .ROUTE .STK-MED ONE Lab/Rad Data: Laboratory Result Diagrams 11/29/24 23:15 11/29/24 23:15 Laboratory Results 11/29/24 11/29/24 11/29/24 Range/Units 23:15 23:15 23:15 WBC 14.2 H (3.98-10.04) x10^3/uL RBC 4.66 (3.93-5.22) x10^6/uL Hgb 14.2 (11.2-15.7) g/dL Hct 41.9 (34.1-44.9) % MCV 89.9 (79.4-94.8) fL MCH 30.5 (25.6-32.2) pg MCHC 33.9 (32.2-35.5) g/dL RDW 12.3 (11.7-14.4) % Plt Count 257 (182-369) x10^3/uL MPV 9.2 L (9.4-12.3) fL Gran % 93.3 H (34.0-71.1) % Immature Gran % (Auto) 0.5 H (0.001-0.429) % Nucleat RBC Rel Count 0.0 (0.00-0.2) % Eos # (Auto) 0.02 L (0.04-0.36) x10^3/uL Immature Gran # (Auto) 0.07 H (0.001-0.031) x10^3u/L Absolute Lymphs (auto) 0.19 L (1.18-3.74) x10^3/uL Absolute Monos (auto) 0.67 (0.24-0.86) x10^3/uL Absolute Nucleated RBC 0.00 (0.00-0.012) x10^3u/L Lymphocytes % 1.3 L (19.3-51.7) % Monocytes % 4.7 (4.7-12.5) % Eosinophils % 0.1 L (0.7-5.8) % Basophils % 0.1 (0.1-1.2) % Absolute Granulocytes 13.23 H (1.56-6.13) x10^3/uL Basophils # 0.02 (0.01-0.08) x10^3/uL Sodium 134 L (135-145) mmol/L Potassium 4.2 (3.5-5.1) mmol/L Chloride 98 (98-107) mmol/L Carbon Dioxide 30 (22-30) mmol/L Anion Gap 11.4 (5-15) MEQ/L BUN 11 (7-17) mg/dL Creatinine 0.60 (0.52-1.04) mg/dL Estimated GFR 98.3 ML/MIN Glucose 143 H (74-106) mg/dL Calcium 9.2 (8.4-10.2) mg/dL Total Bilirubin 0.60 (0.2-1.3) mg/dL AST 30 (14-36) U/L ALT 25 (0-35) U/L Alkaline Phosphatase 64 (38-126) U/L Troponin I < 0.012 (0.000-0.033) ng/mL Serum Total Protein 7.1 (6.3-8.2) g/dL Albumin 4.5 (3.5-5.0) g/dL Lipase 47 (23-300) U/L Urine Color (Yellow) Urine Appearance (Clear) Urine pH (4.6-8.0) Ur Specific Hart[place]orn (1.005-1.030) Urine Protein (Negative) Urine Glucose (UA) (Negative) mg/dL Urine Ketones (Negative) Urine Blood (Negative) Urine Nitrite (Negative) Urine Bilirubin (Negative) Urine Urobilinogen (0.2) mg/dL Ur Leukocyte Esterase (Negative) U Hyaline Cast (Auto) (0-2) /LPF Urine Microscopic RBC (0-5) /HPF Urine Microscopic WBC (0-5) /HPF Ur Epithelial Cells (None Seen) /HPF Urine Bacteria (None Seen) /HPF Urine Culture Reflexed (NO) Influenza Type A Ag (NEGATIVE) Influenza Type B Ag (NEGATIVE) RSV (PCR) (NEGATIVE) SARS-CoV-2 (PCR) (NEGATIVE) Slides for Path Review YES 11/29/24 11/29/24 Range/Units 23:15 22:59 WBC (3.98-10.04) x10^3/uL RBC (3.93-5.22) x10^6/uL Hgb (11.2-15.7) g/dL Hct (34.1-44.9) % MCV (79.4-94.8) fL MCH (25.6-32.2) pg MCHC (32.2-35.5) g/dL RDW (11.7-14.4) % Plt Count (182-369) x10^3/uL MPV (9.4-12.3) fL Gran % (34.0-71.1) % Immature Gran % (Auto) (0.001-0.429) % Nucleat RBC Rel Count (0.00-0.2) % Eos # (Auto) (0.04-0.36) x10^3/uL Immature Gran # (Auto) (0.001-0.031) x10^3u/L Absolute Lymphs (auto) (1.18-3.74) x10^3/uL Absolute Monos (auto) (0.24-0.86) x10^3/uL Absolute Nucleated RBC (0.00-0.012) x10^3u/L Lymphocytes % (19.3-51.7) % Monocytes % (4.7-12.5) % Eosinophils % (0.7-5.8) % Basophils % (0.1-1.2) % Absolute Granulocytes (1.56-6.13) x10^3/uL Basophils # (0.01-0.08) x10^3/uL Sodium (135-145) mmol/L Potassium (3.5-5.1) mmol/L Chloride (98-107) mmol/L Carbon Dioxide (22-30) mmol/L Anion Gap (5-15) MEQ/L BUN (7-17) mg/dL Creatinine (0.52-1.04) mg/dL Estimated GFR ML/MIN Glucose (74-106) mg/dL Calcium (8.4-10.2) mg/dL Total Bilirubin (0.2-1.3) mg/dL AST (14-36) U/L ALT (0-35) U/L Alkaline Phosphatase (38-126) U/L Troponin I (0.000-0.033) ng/mL Serum Total Protein (6.3-8.2) g/dL Albumin (3.5-5.0) g/dL Lipase (23-300) U/L Urine Color Yellow (Yellow) Urine Appearance Cloudy A (Clear) Urine pH 5.5 (4.6-8.0) Ur Specific [place] 1.015 (1.005-1.030) Urine Protein Trace A (Negative) Urine Glucose (UA) Negative (Negative) mg/dL Urine Ketones 15 A (Negative) Urine Blood Small A (Negative) Urine Nitrite Negative (Negative) Urine Bilirubin Negative (Negative) Urine Urobilinogen 0.2 (0.2) mg/dL Ur Leukocyte Esterase Small A (Negative) U Hyaline Cast (Auto) 3-5 A (0-2) /LPF Urine Microscopic RBC 6-10 A (0-5) /HPF Urine Microscopic WBC 6-10 A (0-5) /HPF Ur Epithelial Cells Rare (None Seen) /HPF Urine Bacteria None Seen (None Seen) /HPF Urine Culture Reflexed YES (NO) Influenza Type A Ag NEGATIVE (NEGATIVE) Influenza Type B Ag NEGATIVE (NEGATIVE) RSV (PCR) NEGATIVE (NEGATIVE) SARS-CoV-2 (PCR) NEGATIVE (NEGATIVE) Slides for Path Review - Progress Progress: improved Progress Note: 69-year-old female presents to emergency department for evaluation of nausea and vomiting started today. Patient unable to tolerate p.o. Physical exam significant for diffuse abdominal pain. Laboratory workup reveals a leukocytos is and urinary tract infection. Patient received a dose of Rocephin IV fluids administered as well. Patient received 2 doses of Zofran and Toradol for pain control. Patient reassessed. Symptoms improved but did not resolve. Patient still unable to tolerate p.o. Patient will be admitted for intractable nausea and vomiting, management discussed with hospitalist who accepts admission to observation at 1:30 AM. Plan of care discussed with patient. She agrees to admission at [facility] for further evaluation and treatment. Portions of this note were created with voice recognition technology. There may be grammatical, spelling, punctuation or sound alike errors Complexity of problem addressed is moderate acute complicated. No critical care time. Complexity of data reviewed and analyzed is extensive. Test ordered test reviewed results analyzed and correlated clinically with history and physical exam. Management discussed with hospitalist who excepts admission to observation. Risk of complication and or risk of morbidity/mortality of patient management is high. Patient requires hospitalization for further evaluation and treatment. Vital stable. Time spent to admit patient is approximately 15 minutes. Plan of care established for shared decision making. No social determinants of health present to impede follow-up. Portions of this note were created with voice recognition technology. There may be grammatical, spelling, punctuation or sound alike errors 11/30/24 01:31 Counseled pt/family regarding: lab results, diagnosis, rad results - Departure Departure Disposition: Observation Clinical Impression: Leukocytosis, UTI (urinary tract infection), Nausea & vomiting, Abdominal pain, Constipation Condition: Stable Critical Care Time: No Referrals: KOO,RAEANN, SHUTTLE VAN DRIVER [Primary Care Provider] - Follow up/PCP as directed
[2024-11-30] MEDS ORDERED: ROCEPHIN 1 GM / 100 ML NaCl 1 GM/100 ML IVPB IV ONE (00:19)
[2024-11-30] MEDS: ROCEPHIN 1 GM / 100 ML NaCl 1 GM/100 ML IVPB IV ONE (00:22)
[2024-11-30] MEDS ORDERED: TORAdol 30 mg Injection ONE (00:37)
[2024-11-30] MEDS: TORAdol 30 mg Injection IV ONE (00:41)
[2024-11-30] MEDS ORDERED: Zofran 4 MG/2 ML VIAL ONE (01:09)
[2024-11-30] MEDS: Zofran 4 MG/2 ML VIAL IV ONE (01:16)
[2024-11-30] MEDS ORDERED: xanAX 0.25 MG PO PRN (06:36)
--- NOTE | 2024-11-30 06:45 | PCM.HP ---
History of Present Illness - Chief Complaint Chief Complaint: INTRACTABLE NAUSEA, VOMITING, UTI, ABDOMINAL PAIN, CONSTIPATION Date: 11/30/24 History of Present Illness: is a 69 year old female h/o constipation, hypothyroidism who presents with nausea / vomiting x 12 hours. Mild abdominal pain. Has not have bm in [address] A/P showed constipation. UA positive for UTI. - Review of Systems Additional Findings: ROS: All other ROS is negative unless mentioned above. Medications & Allergies Home Medications: Home Medication List Levothyroxine Sodium 75 Mcg [Synthroid 75 Mcg] 50 mcg PO DAILY 01/31/16 [History Confirmed 11/29/24] Simvastatin 40 mg [Zocor 40 mg] 10 mg PO HS 01/31/16 [History Confirmed 11/29/24] Lisinopril 10 mg [Zestril 10 MG] 5 mg PO DAILY 04/24/20 [History Confirmed 11/30/24] ALPRAZolam 0.25 MG [xanAX 0.25 MG] 0.25 mg PO DAILY PRN PRN 12/11/23 [History Confirmed 11/30/24] PARoxetine HCL [Paroxetine HCl] 10 mg PO DAILY 12/11/23 [History Confirmed 11/29/24] Allergies/Adverse Reactions: Allergies Allergy/AdvReac Type Severity Reaction Status Date / Time codeine Allergy Intermediate Nausea and Verified 11/29/24 22:45 Vomiting epinephrine Allergy Intermediate Verified 11/29/24 22:45 - Past Medical History Past Medical History: Yes Neurological History: No Pertinent History ENT History: No Pertinent History Cardiac History: High Cholesterol, Hypertension Respiratory History: No Pertinent History Endocrine Medical History: Hypothyroidism Musculoskelatal History: No Pertinent History GI Medical History: Gallbladder Disease, Other History: No Pertinent History Pyscho-Social History: Anxiety 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 - Past Surgical History Past Surgical History: Yes Neuro Surgical History: No Pertinent History Cardiac History: No Pertinent History Respiratory Surgery: No Pertinent History GI Surgical History: Cholecystectomy Genitourinary Surgical Hx: No Pertinent History Musculskeletal Surgical Hx: No Pertinent History Female Surgical History: Hysterectomy Other Surgical History: colonscopy - Social History Smoking Status: Never smoker Exposure to second hand smoke: Yes Alcohol: None Drug Use: none - Social Determinants of Health Will the patient participate in the screening: Yes Do you worry about a steady place to live?: No Do you have any problems with any of the following?: No known problems In the past 12 months,have you had to go without utilities?: No Have you or anyone in your house had to go without enough: No Transportation Issues: No Has anyone in your support network made you feel unsafe?: No Does the patient want assistance with any of the above?: No - Physical Exam Vital Signs: Vital Signs - 24 hr Temp Pulse Resp BP Pulse Ox 11/30/24 02:32 98.7 F 95 H 16 115/59 95 11/30/24 02:31 94 H 18 96 11/30/24 02:00 92 H 17 116/56 97 11/30/24 01:33 99 11/30/24 01:00 95 H 17 128/60 97 11/30/24 00:00 95 H 18 130/60 99 11/29/24 23:00 98 H 18 134/64 99 11/29/24 22:35 97.6 F 100 H 17 136/71 99 General Appearance: no apparent distress Neurologic Exam: alert, oriented x 3 Eye Exam: PERRL/EOMI, eyes nml inspection, scleral icterus Ears, Nose, Throat Exam: normal ENT inspection, dry mucous membranes Neck Exam: normal inspection, non-tender, supple, full range of motion Respiratory Exam: normal breath sounds, lungs clear Cardiovascular Exam: regular rate/rhythm, normal heart sounds, normal peripheral pulses Gastrointestinal/Abdomen Exam: soft, normal bowel sounds Back Exam: normal inspection, normal range of motion Extremity Exam: normal inspection, normal range of motion Skin Exam: normal color, warm Results - Labs Lab/Micro Results: Lab Results-Last 24 Hours 11/29/24 11/29/24 11/29/24 Range/Units 22:59 23:15 23:15 WBC 14.2 H (3.98-10.04) x10^3/uL RBC 4.66 (3.93-5.22) x10^6/uL Hgb 14.2 (11.2-15.7) g/dL Hct 41.9 (34.1-44.9) % MCV 89.9 (79.4-94.8) fL MCH 30.5 (25.6-32.2) pg MCHC 33.9 (32.2-35.5) g/dL RDW 12.3 (11.7-14.4) % Plt Count 257 (182-369) x10^3/uL MPV 9.2 L (9.4-12.3) fL Gran % 93.3 H (34.0-71.1) % Immature Gran % (Auto) 0.5 H (0.001-0.429) % Nucleat RBC Rel Count 0.0 (0.00-0.2) % Eos # (Auto) 0.02 L (0.04-0.36) x10^3/uL Immature Gran # (Auto) 0.07 H (0.001-0.031) x10^3u/L Absolute Lymphs (auto) 0.19 L (1.18-3.74) x10^3/uL Absolute Monos (auto) 0.67 (0.24-0.86) x10^3/uL Absolute Nucleated RBC 0.00 (0.00-0.012) x10^3u/L Lymphocytes % 1.3 L (19.3-51.7) % Monocytes % 4.7 (4.7-12.5) % Eosinophils % 0.1 L (0.7-5.8) % Basophils % 0.1 (0.1-1.2) % Absolute Granulocytes 13.23 H (1.56-6.13) x10^3/uL Basophils # 0.02 (0.01-0.08) x10^3/uL Sodium (135-145) mmol/L Potassium (3.5-5.1) mmol/L Chloride (98-107) mmol/L Carbon Dioxide (22-30) mmol/L Anion Gap (5-15) MEQ/L BUN (7-17) mg/dL Creatinine (0.52-1.04) mg/dL Estimated GFR ML/MIN Glucose (74-106) mg/dL Calcium (8.4-10.2) mg/dL Total Bilirubin (0.2-1.3) mg/dL AST (14-36) U/L ALT (0-35) U/L Alkaline Phosphatase (38-126) U/L Troponin I (0.000-0.033) ng/mL Serum Total Protein (6.3-8.2) g/dL Albumin (3.5-5.0) g/dL Lipase (23-300) U/L Urine Color Yellow (Yellow) Urine Appearance Cloudy A (Clear) Urine pH 5.5 (4.6-8.0) Ur Specific [place] 1.015 (1.005-1.030) Urine Protein Trace A (Negative) Urine Glucose (UA) Negative (Negative) mg/dL Urine Ketones 15 A (Negative) Urine Blood Small A (Negative) Urine Nitrite Negative (Negative) Urine Bilirubin Negative (Negative) Urine Urobilinogen 0.2 (0.2) mg/dL Ur Leukocyte Esterase Small A (Negative) U Hyaline Cast (Auto) 3-5 A (0-2) /LPF Urine Microscopic RBC 6-10 A (0-5) /HPF Urine Microscopic WBC 6-10 A (0-5) /HPF Ur Epithelial Cells Rare (None Seen) /HPF Urine Bacteria None Seen (None Seen) /HPF Urine Culture Reflexed YES (NO) Influenza Type A Ag NEGATIVE (NEGATIVE) Influenza Type B Ag NEGATIVE (NEGATIVE) RSV (PCR) NEGATIVE (NEGATIVE) SARS-CoV-2 (PCR) NEGATIVE (NEGATIVE) Slides for Path Review YES 11/29/24 11/29/24 11/30/24 Range/Units 23:15 23:15 03:10 WBC (3.98-10.04) x10^3/uL RBC (3.93-5.22) x10^6/uL Hgb (11.2-15.7) g/dL Hct (34.1-44.9) % MCV (79.4-94.8) fL MCH (25.6-32.2) pg MCHC (32.2-35.5) g/dL RDW (11.7-14.4) % Plt Count (182-369) x10^3/uL MPV (9.4-12.3) fL Gran % (34.0-71.1) % Immature Gran % (Auto) (0.001-0.429) % Nucleat RBC Rel Count (0.00-0.2) % Eos # (Auto) (0.04-0.36) x10^3/uL Immature Gran # (Auto) (0.001-0.031) x10^3u/L Absolute Lymphs (auto) (1.18-3.74) x10^3/uL Absolute Monos (auto) (0.24-0.86) x10^3/uL Absolute Nucleated RBC (0.00-0.012) x10^3u/L Lymphocytes % (19.3-51.7) % Monocytes % (4.7-12.5) % Eosinophils % (0.7-5.8) % Basophils % (0.1-1.2) % Absolute Granulocytes (1.56-6.13) x10^3/uL Basophils # (0.01-0.08) x10^3/uL Sodium 134 L (135-145) mmol/L Potassium 4.2 (3.5-5.1) mmol/L Chloride 98 (98-107) mmol/L Carbon Dioxide 30 (22-30) mmol/L Anion Gap 11.4 (5-15) MEQ/L BUN 11 (7-17) mg/dL Creatinine 0.60 (0.52-1.04) mg/dL Estimated GFR 98.3 ML/MIN Glucose 143 H (74-106) mg/dL Calcium 9.2 (8.4-10.2) mg/dL Total Bilirubin 0.60 (0.2-1.3) mg/dL AST 30 (14-36) U/L ALT 25 (0-35) U/L Alkaline Phosphatase 64 (38-126) U/L Troponin I < 0.012 < 0.012 (0.000-0.033) ng/mL Serum Total Protein 7.1 (6.3-8.2) g/dL Albumin 4.5 (3.5-5.0) g/dL Lipase 47 (23-300) U/L Urine Color (Yellow) Urine Appearance (Clear) Urine pH (4.6-8.0) Ur Specific [place] (1.005-1.030) Urine Protein (Negative) Urine Glucose (UA) (Negative) mg/dL Urine Ketones (Negative) Urine Blood (Negative) Urine Nitrite (Negative) Urine Bilirubin (Negative) Urine Urobilinogen (0.2) mg/dL Ur Leukocyte Esterase (Negative) U Hyaline Cast (Auto) (0-2) /LPF Urine Microscopic RBC (0-5) /HPF Urine Microscopic WBC (0-5) /HPF Ur Epithelial Cells (None Seen) /HPF Urine Bacteria (None Seen) /HPF Urine Culture Reflexed (NO) Influenza Type A Ag (NEGATIVE) Influenza Type B Ag (NEGATIVE) RSV (PCR) (NEGATIVE) SARS-CoV-2 (PCR) (NEGATIVE) Slides for Path Review - Radiology Impressions Radiology Exams & Impressions: Radiology Procedures Category Date Time Status ABDOMEN AND PELVIS W/0 CONTRAS [CT] Stat Exams 11/29/24 23:05 Completed Assessment/Plan (1) UTI (urinary tract infection) Current Visit: Yes Status: Acute Qualifiers: Urinary tract infection type: acute cystitis Assessment & Plan: - follow up ucx - continue ctx Code(s): N39.0 - URINARY TRACT INFECTION, SITE NOT SPECIFIED (2) Constipation Current Visit: Yes Status: Acute Assessment & Plan: - writing for bm regimen Code(s): K59.00 - CONSTIPATION, UNSPECIFIED (3) Hypothyroidism Current Visit: Yes Status: Acute Assessment & Plan: - continue home levothyroxine Code(s): E03.9 - HYPOTHYROIDISM, UNSPECIFIED (4) Hypertension Current Visit: No Status: Acute Code(s): I10 - ESSENTIAL (PRIMARY) HYPERTENSION (5) Anxiety Current Visit: No Status: Acute Assessment & Plan: - continue home meds Code(s): F41.9 - ANXIETY DISORDER, UNSPECIFIED (6) Mechanical deep vein thrombosis (DVT) prophylaxis in place Current Visit: Yes Status: Acute Code(s): Z78.9 - OTHER SPECIFIED HEALTH STATUS Telemedicine Encounter - Telemedicine Encounter Telemedicine Encounter: "The entirety of this encounter was performed via Telemedicine" This visit was performed using real-time audio and video connection between my location and thepatients locationwith the assistance of a surrogateat the patients location. Written or verbal consent was obtained from the patient/guardian to perform this visit using[facility] technology. Any patient questions regarding the telemedicine interaction were answered. Patient was located in [facility] and I was located in [place], [place]
[2024-11-30 07:38] LABS: Absolute Neutrophil Ct (ANC) 10.08 x10^3/uL (1.56-6.13); BASOPHIL % 0.1 % (0.1-1.2); Basophil (Absolute #) 0.01 x10^3/uL (0.01-0.08); Eosinophil (Absolute #) 0 x10^3/uL (0.04-0.36); Hematocrit 38.5 % (34.1-44.9); Hemoglobin 12.9 g/dL (11.2-15.7); IMMATURE GRAN # 0.06 x10^3u/L (0.001-0.031); IMMATURE GRAN % 0.6 % (0.001-0.429); Lymphocyte (Absolute #) 0.12 x10^3/uL (1.18-3.74); Lymphocytes % 1.1 % (19.3-51.7); Mean Cell Volume 91.4 fL (79.4-94.8); Mean Corpuscular Hemoglobin 30.6 pg (25.6-32.2); Mean Corpuscular Hgb Concent. 33.5 g/dL (32.2-35.5); Mean Platelet Volume 10.2 fL (9.4-12.3); Monocyte (Absolute #) 0.31 x10^3/uL (0.24-0.86); Monocytes % 2.9 % (4.7-12.5); Neutrophil % 95.3 % (34.0-71.1); Platelet Count 247 x10^3/uL (182-369); Red Blood Count 4.21 x10^6/uL (3.93-5.22); Red Cell Distribution Width 12.6 % (11.7-14.4); White Blood Count 10.6 x10^3/uL (3.98-10.04)
[2024-11-30 07:45] LABS: ALBUMIN 3.6 g/dL (3.5-5.0); ANION GAP 10.9 MEQ/L (5-15); BILIRUBIN,TOTAL 0.5 mg/dL (0.2-1.3); Calcium 8.2 mg/dL (8.4-10.2); Creatinine 1 0.51 mg/dL (0.52-1.04); EST GLOMERULAR FILTRATION RATE 102.3 ML/MIN; Potassium 3.6 mmol/L (3.5-5.1); Total Protein 5.9 g/dL (6.3-8.2)
[2024-11-30] MEDS: Zofran 4 MG/2 ML VIAL IV PRN (08:25)
[2024-11-30] MEDS: Sodium Chloride 0.9% 1000 ML 1,000 ML IV SCH (08:38)
[2024-11-30 08:53] LABS: Slide Review 1 YES
[2024-11-30] MEDS ORDERED: SYNTHROID 75 MCG PO SCH (10:00)
[2024-11-30] MEDS ORDERED: Zestril 10 MG PO SCH (10:00)
[2024-11-30] MEDS ORDERED: NON-FORMULARY ITEM (Paroxetine Hcl [Paroxetine Hcl] 10 MG Tablet) PO SCH (10:00)
[2024-11-30] MEDS: Compazine 10 MG/2 ML IV PRN (12:46)
[2024-11-30] MEDS: Miralax Powder 17GM PACKET PO SCH (12:50)
[2024-11-30] MEDS: Docusate Sodium 100 MG PO SCH (12:50)
[2024-11-30] MEDS: SYNTHROID 50 MCG PO SCH (17:05)
[2024-11-30] MEDS: Paxil 20 MG PO SCH (17:05)
[2024-11-30] MEDS: Zestril 5 MG PO SCH (17:05)
[2024-11-30] MEDS: ROCEPHIN 1 GM / 100 ML NaCl 1 GM/100 ML IVPB IV SCH (21:42)
[2024-11-30] MEDS: Zocor 10MG PO SCH (21:42)
[2024-11-30] MEDS ORDERED: NON-FORMULARY ITEM (Simvastatin 40 Mg [Zocor 40 Mg] 40 MG Tablet) PO SCH (22:00)
[2024-12-01 03:47] VITALS: RESP 16
[2024-12-01 05:08] LABS: BASOPHIL % 0.3 % (0.1-1.2); Basophil (Absolute #) 0.01 x10^3/uL (0.01-0.08); Eosinophil (Absolute #) 0 x10^3/uL (0.04-0.36); Hematocrit 30.6 % (34.1-44.9); Hemoglobin 10.3 g/dL (11.2-15.7); IMMATURE GRAN # 0.04 x10^3u/L (0.001-0.031); IMMATURE GRAN % 1.2 % (0.001-0.429); Lymphocyte (Absolute #) 0.46 x10^3/uL (1.18-3.74); Lymphocytes % 14.2 % (19.3-51.7); Mean Cell Volume 91.9 fL (79.4-94.8); Mean Corpuscular Hemoglobin 30.9 pg (25.6-32.2); Mean Corpuscular Hgb Concent. 33.7 g/dL (32.2-35.5); Mean Platelet Volume 9.7 fL (9.4-12.3); Monocyte (Absolute #) 0.42 x10^3/uL (0.24-0.86); Neutrophil % 71.3 % (34.0-71.1); Platelet Count 153 x10^3/uL (182-369); Red Blood Count 3.33 x10^6/uL (3.93-5.22); Red Cell Distribution Width 12.8 % (11.7-14.4); White Blood Count 3.2 x10^3/uL (3.98-10.04)
--- NOTE | 2024-12-01 05:19 | PCM.NOTE ---
Date and Time: 12/01/24 0515 Subjective Assessment: HPI: is a 69 year old female h/o constipation, hypothyroidism who presents with nausea / vomiting x 12 hours. Mild abdominal pain. Has not have bm in [address] A/P showed constipation. UA positive for UTI. Objective Data Vital Signs: Vital Signs - 24 hr Temp Pulse Resp BP Pulse Ox 12/01/24 03:46 99.1 F 88 16 102/56 93 L 12/01/24 00:00 96.4 F 90 15 90/51 93 L 11/30/24 20:00 97.8 F 100 H 16 101/51 95 11/30/24 16:00 97.9 F 95 H 16 115/57 94 L 11/30/24 11:52 98.2 F 90 16 99/54 99 11/30/24 07:43 97.9 F 92 H 16 112/54 97 Pain Assessment - Last Documented Pain Intensity 0 Pain Scale Used 0-10 Pain Scale Intake and Output: Intake & Output 11/28/24 11/29/24 11/30/24 12/01/24 11:59 11:59 11:59 11:59 Intake Total 420 2647 Output Total 300 Balance 120 2647 Weight 50.3 kg Lab Results: Lab Results-Last 24 Hours 11/30/24 11/30/24 11/30/24 Range/Units 03:50 03:50 07:25 WBC 10.6 H (3.98-10.04) x10^3/uL RBC 4.21 (3.93-5.22) x10^6/uL Hgb 12.9 (11.2-15.7) g/dL Hct 38.5 (34.1-44.9) % MCV 91.4 (79.4-94.8) fL MCH 30.6 (25.6-32.2) pg MCHC 33.5 (32.2-35.5) g/dL RDW 12.6 (11.7-14.4) % Plt Count 247 (182-369) x10^3/uL MPV 10.2 (9.4-12.3) fL Gran % 95.3 H (34.0-71.1) % Immature Gran % (Auto) 0.6 H (0.001-0.429) % Nucleat RBC Rel Count 0.0 (0.00-0.2) % Eos # (Auto) 0 L (0.04-0.36) x10^3/uL Immature Gran # (Auto) 0.06 H (0.001-0.031) x10^3u/L Absolute Lymphs (auto) 0.12 L (1.18-3.74) x10^3/uL Absolute Monos (auto) 0.31 (0.24-0.86) x10^3/uL Absolute Nucleated RBC 0.00 (0.00-0.012) x10^3u/L Lymphocytes % 1.1 L (19.3-51.7) % Monocytes % 2.9 L (4.7-12.5) % Eosinophils % 0.0 L (0.7-5.8) % Basophils % 0.1 (0.1-1.2) % Absolute Granulocytes 10.08 H (1.56-6.13) x10^3/uL Basophils # 0.01 (0.01-0.08) x10^3/uL Sodium 134 L (135-145) mmol/L Potassium 3.6 (3.5-5.1) mmol/L Chloride 102 (98-107) mmol/L Carbon Dioxide 25 (22-30) mmol/L Anion Gap 10.9 (5-15) MEQ/L BUN 11 (7-17) mg/dL Creatinine 0.51 L (0.52-1.04) mg/dL Estimated GFR 102.3 ML/MIN Glucose 151 H (74-106) mg/dL Calcium 8.2 L (8.4-10.2) mg/dL Total Bilirubin 0.50 (0.2-1.3) mg/dL AST 43 H (14-36) U/L ALT 33 (0-35) U/L Alkaline Phosphatase 54 (38-126) U/L Troponin I < 0.012 (0.000-0.033) ng/mL Serum Total Protein 5.9 L (6.3-8.2) g/dL Albumin 3.6 (3.5-5.0) g/dL Slides for Path Review YES Radiology Exams: Radiology Procedures Category Date Time Status ABDOMEN AND PELVIS W/0 CONTRAS [CT] Stat Exams 11/29/24 23:05 Completed Assessment/Plan (1) UTI (urinary tract infection) Current Visit: Yes Status: Acute Qualifiers: Urinary tract infection type: acute cystitis Assessment & Plan: -Ua suspicious for UTI- ceftriaxone started, follow cultures Code(s): N39.0 - URINARY TRACT INFECTION, SITE NOT SPECIFIED (2) Constipation Current Visit: Yes Status: Acute Assessment & Plan: -Rectal suppository available - currently pt has had > 2 BM since admission Code(s): K59.00 - CONSTIPATION, UNSPECIFIED (3) Hypothyroidism Current Visit: Yes Status: Acute Assessment & Plan: -continue home meds Code(s): E03.9 - HYPOTHYROIDISM, UNSPECIFIED (4) Mechanical deep vein thrombosis (DVT) prophylaxis in place Current Visit: Yes Status: Acute Assessment & Plan: -noted Code(s): Z78.9 - OTHER SPECIFIED HEALTH STATUS (5) Anxiety Current Visit: No Status: Acute Assessment & Plan: -continue home meds Code(s): F41.9 - ANXIETY DISORDER, UNSPECIFIED (6) Hypertension Current Visit: No Status: Acute Assessment & Plan: -stable - slightly low - hold lisinopril Code(s): I10 - ESSENTIAL (PRIMARY) HYPERTENSION (7) Hypokalemia due to excessive gastrointestinal loss of potassium Current Visit: Yes Status: Acute Assessment & Plan: -CMP reviewed with potassium at 2.8- 40meq q2 hour ordered by night doctor, will recheck 2 hours post last administration -tele -monitor renal/lytes daily Code(s): E87.6 - HYPOKALEMIA
[2024-12-01 05:31] LABS: ALBUMIN 2.7 g/dL (3.5-5.0); BILIRUBIN,TOTAL 0.3 mg/dL (0.2-1.3); Calcium 7.3 mg/dL (8.4-10.2); Creatinine 1 0.58 mg/dL (0.52-1.04); EST GLOMERULAR FILTRATION RATE 99.1 ML/MIN; Total Protein 4.9 g/dL (6.3-8.2)
[2024-12-01 05:50] LABS: Potassium 2.8 mmol/L (3.5-5.1); Slide Review 1 YES
[2024-12-01] MEDS: Klor Con PO SCH (06:22)
[2024-12-01] MEDS: Klor Con PO ONE (11:19)
[2024-12-01 12:11] VITALS: BP 105/57; PULSE 81; TEMP 97.8; O2SAT 98
--- NOTE | 2024-12-01 12:43 | PCM.DS ---
Discharge Summary Date of Admission: 11/30/24 02:10 Date of Discharge: 12/01/24 Admitting Physician: ALVIN FELIZ MD Primary Care Provider: RAEANN KOO Allergies Allergies codeine Allergy (Intermediate, Verified 11/29/24 22:45) Nausea and Vomiting epinephrine Allergy (Intermediate, Verified 11/29/24 22:45) unknown Hospital Summary - Hospital Course Hospital Course: HPI: is a 69 year old female h/o constipation, hypothyroidism who prese nts with nausea / vomiting x 12 hours. Mild abdominal pain. Has not have bm in [address] A/P showed constipation. UA positive for UTI. admit for UTI and viral gastroenteritis. IP treatment with abx and supportive care. Hypokalemia with replenishment today. Patient tolerating diet and n/v have resolved. She has had several BMs since admission - states she is chronically constipated. Discussed bowel regimen. Will advance to full diet and replace potassium today. If she is able to tolerate diet and electrolytes are corrected she is stable for discharge as she has requested to go home today. Will send home with cefdinir and zofran. Will follow up with PCP for repeat labs and UA. Discharge Note New Diagnosis: viral gastroenteritis New Medications: zofran/cefdinir Latest Assessment & Plan Viral Gastroenteritis -supportive care with anti-emetics -ADAT -IVF (1) UTI (urinary tract infection) Current Visit: Yes Status: Acute Qualifiers: Urinary tract infection type: acute cystitis Assessment & Plan: -Ua suspicious for UTI- ceftriaxone started, follow cultures Code(s): N39.0 - URINARY TRACT INFECTION, SITE NOT SPECIFIED (2) Constipation Current Visit: Yes Status: Acute Assessment & Plan: -Rectal suppository available - currently pt has had > 2 BM since admission Code(s): K59.00 - CONSTIPATION, UNSPECIFIED (3) Hypothyroidism Current Visit: Yes Status: Acute Assessment & Plan: -continue home meds Code(s): E03.9 - HYPOTHYROIDISM, UNSPECIFIED (4) Mechanical deep vein thrombosis (DVT) prophylaxis in place Current Visit: Yes Status: Acute Assessment & Plan: -noted Code(s): Z78.9 - OTHER SPECIFIED HEALTH STATUS (5) Anxiety Current Visit: No Status: Acute Assessment & Plan: -continue home meds Code(s): F41.9 - ANXIETY DISORDER, UNSPECIFIED (6) Hypertension Current Visit: No Status: Acute Assessment & Plan: -stable - slightly low - hold lisinopril Code(s): I10 - ESSENTIAL (PRIMARY) HYPERTENSION (7) Hypokalemia due to excessive gastrointestinal loss of potassium Current Visit: Yes Status: Acute Assessment & Plan: -CMP reviewed with potassium at 2.8- 40meq q2 hour ordered by night doctor, will recheck 2 hours post last administration -tele -monitor renal/lytes daily I spent 35 minutes [id number] with the patient on the day of discharge performing discharge exam, discussing hospital stay and discharge instructions with patient and caregivers, preparation of discharge records, prescriptions & referral forms and addressing any questions/concerns the patient had as documented above. - Vitals & Intake/Output Vital Signs: Vital Signs Temperature 97.8 F 12/01/24 12:00 Pulse Rate 81 12/01/24 12:00 Respiratory Rate 16 12/01/24 12:00 Blood Pressure 105/57 12/01/24 12:00 O2 Sat by Pulse Oximetry 98 12/01/24 12:00 Intake & Output: Intake & Output 11/29/24 11/30/24 12/01/24 12/02/24 11:59 11:59 11:59 11:59 Intake Total 420 3027 Output Total 300 Balance 120 3027 Weight 50.3 kg - Lab Result Diagrams: 12/01/24 04:35 12/01/24 10:12 Lab Results-Last 24 Hrs: Lab Results-Last 24 Hours 12/01/24 12/01/24 12/01/24 Range/Units 04:35 04:35 05:51 WBC 3.2 L (3.98-10.04) x10^3/uL RBC 3.33 L (3.93-5.22) x10^6/uL Hgb 10.3 L D (11.2-15.7) g/dL Hct 30.6 L (34.1-44.9) % MCV 91.9 (79.4-94.8) fL MCH 30.9 (25.6-32.2) pg MCHC 33.7 (32.2-35.5) g/dL RDW 12.8 (11.7-14.4) % Plt Count 153 L D (182-369) x10^3/uL MPV 9.7 (9.4-12.3) fL Gran % 71.3 H (34.0-71.1) % Immature Gran % (Auto) 1.2 H (0.001-0.429) % Nucleat RBC Rel Count 0.0 (0.00-0.2) % Eos # (Auto) 0 L (0.04-0.36) x10^3/uL Immature Gran # (Auto) 0.04 H (0.001-0.031) x10^3u/L Absolute Lymphs (auto) 0.46 L (1.18-3.74) x10^3/uL Absolute Monos (auto) 0.42 (0.24-0.86) x10^3/uL Absolute Nucleated RBC 0.00 (0.00-0.012) x10^3u/L Lymphocytes % 14.2 L (19.3-51.7) % Monocytes % 13.0 H (4.7-12.5) % Eosinophils % 0.0 L (0.7-5.8) % Basophils % 0.3 (0.1-1.2) % Absolute Granulocytes 2.30 (1.56-6.13) x10^3/uL Basophils # 0.01 (0.01-0.08) x10^3/uL Sodium 130 L (135-145) mmol/L Potassium 2.8 L* D (3.5-5.1) mmol/L Chloride 102 (98-107) mmol/L Carbon Dioxide 27 (22-30) mmol/L Anion Gap 4.0 L (5-15) MEQ/L BUN 6 L (7-17) mg/dL Creatinine 0.58 (0.52-1.04) mg/dL Estimated GFR 99.1 ML/MIN Glucose 100 (74-106) mg/dL Calcium 7.3 L (8.4-10.2) mg/dL Magnesium 1.6 (1.6-2.3) mg/dL Total Bilirubin 0.30 (0.2-1.3) mg/dL AST 30 (14-36) U/L ALT 22 (0-35) U/L Alkaline Phosphatase 41 (38-126) U/L Serum Total Protein 4.9 L (6.3-8.2) g/dL Albumin 2.7 L (3.5-5.0) g/dL Slides for Path Review YES 12/01/24 Range/Units 10:12 WBC (3.98-10.04) x10^3/uL RBC (3.93-5.22) x10^6/uL Hgb (11.2-15.7) g/dL Hct (34.1-44.9) % MCV (79.4-94.8) fL MCH (25.6-32.2) pg MCHC (32.2-35.5) g/dL RDW (11.7-14.4) % Plt Count (182-369) x10^3/uL MPV (9.4-12.3) fL Gran % (34.0-71.1) % Immature Gran % (Auto) (0.001-0.429) % Nucleat RBC Rel Count (0.00-0.2) % Eos # (Auto) (0.04-0.36) x10^3/uL Immature Gran # (Auto) (0.001-0.031) x10^3u/L Absolute Lymphs (auto) (1.18-3.74) x10^3/uL Absolute Monos (auto) (0.24-0.86) x10^3/uL Absolute Nucleated RBC (0.00-0.012) x10^3u/L Lymphocytes % (19.3-51.7) % Monocytes % (4.7-12.5) % Eosinophils % (0.7-5.8) % Basophils % (0.1-1.2) % Absolute Granulocytes (1.56-6.13) x10^3/uL Basophils # (0.01-0.08) x10^3/uL Sodium (135-145) mmol/L Potassium 3.4 L (3.5-5.1) mmol/L Chloride (98-107) mmol/L Carbon Dioxide (22-30) mmol/L Anion Gap (5-15) MEQ/L BUN (7-17) mg/dL Creatinine (0.52-1.04) mg/dL Estimated GFR ML/MIN Glucose (74-106) mg/dL Calcium (8.4-10.2) mg/dL Magnesium (1.6-2.3) mg/dL Total Bilirubin (0.2-1.3) mg/dL AST (14-36) U/L ALT (0-35) U/L Alkaline Phosphatase (38-126) U/L Serum Total Protein (6.3-8.2) g/dL Albumin (3.5-5.0) g/dL Slides for Path Review Micro Results-Entire Visit: Microbiology 11/29/24 22:59 Urine Culture - Final Clean Catch Midstream <10K NORMAL SKIN LUIS DANIEL PROBABLE SKIN CONTAMINANT - Radiology Exams Ordered Rad Exams-Entire Visit: Radiology Procedures Category Date Time Status ABDOMEN AND PELVIS W/0 CONTRAS [CT] Stat Exams 11/29/24 23:05 Completed - Procedures and Test Procedures and Tests throughout Hospitalization: Therapy Orders & Screens 11/30/24 03:47 Respiratory Therapy Consult ONCE Comment: Reason For Exam: Diagnosis: INTRACTABLE NAUSEA, VOMITING, UTI, ABDOMINAL PAIN, CONSTIPATION Discharge Exam General Appearance: no apparent distress Neurologic Exam: alert, oriented x 3, cooperative Eye Exam: PERRL Ears, Nose, Throat Exam: normal ENT inspection Neck Exam: normal inspection Respiratory Exam: normal breath sounds, lungs clear Cardiovascular Exam: regular rate/rhythm, normal heart sounds Gastrointestinal/Abdomen Exam: soft, normal bowel sounds Pelvic Exam: deferred Rectal Exam: deferred Back Exam: normal inspection Extremity Exam: normal inspection Skin Exam: normal color Final Diagnosis/Problem List - Final Discharge Diagnosis/Problem (1) Viral gastroenteritis Current Visit: Yes Status: Resolved Code(s): A08.4 - VIRAL INTESTINAL INFECTION, UNSPECIFIED (2) UTI (urinary tract infection) Current Visit: Yes Status: Acute Code(s): N39.0 - URINARY TRACT INFECTION, SITE NOT SPECIFIED (3) Constipation Current Visit: Yes Status: Chronic Code(s): K59.00 - CONSTIPATION, UNSPECIFIED (4) Hypothyroidism Current Visit: Yes Status: Chronic Code(s): E03.9 - HYPOTHYROIDISM, UNSPECIFIED (5) Mechanical deep vein thrombosis (DVT) prophylaxis in place Current Visit: Yes Status: Acute Code(s): Z78.9 - OTHER SPECIFIED HEALTH STATUS (6) Anxiety Current Visit: No Status: Chronic Code(s): F41.9 - ANXIETY DISORDER, UNSPECIFIED (7) Hypertension Current Visit: No Status: Chronic Code(s): I10 - ESSENTIAL (PRIMARY) HYPERTENSION (8) Hypokalemia due to excessive gastrointestinal loss of potassium Current Visit: Yes Status: Resolved Code(s): E87.6 - HYPOKALEMIA - Discharge Discharge Date: 12/01/24 Disposition: Home, Self-Care Condition: Stable Prescriptions: New Cefdinir [Omnicef 300 mg] 300 mg PO BID PRN 7 Days #14 cap Ondansetron ODT 4 MG [Zofran Odt 4 mg] 4 mg PO Q6HPRN PRN #30 tab PRN Reason: Nausea Continue Simvastatin 40 mg [Zocor 40 mg] 10 mg PO HS Levothyroxine Sodium 75 Mcg [Synthroid 75 Mcg] 50 mcg PO DAILY Lisinopril 10 mg [Zestril 10 MG] 5 mg PO DAILY PARoxetine HCL [Paroxetine HCl] 10 mg PO DAILY ALPRAZolam 0.25 MG [xanAX 0.25 MG] 0.25 mg PO DAILY PRN PRN PRN Reason: Anxiety Follow up with: RAEANN KOO NP [Primary Care Provider] -
== END 2024-12-01 15:00 | disposition home or self-care (01) ==
LOC: ED 21:34 → MED SURG 11-30 02:10
PROVIDERS: ADMIT Internal Medicine; ATTEND Internal Medicine
DX: A08.4 Viral intestinal infection, unspecified (principal); N39.0 Urinary tract infection, site not specified; K59.00 Constipation, unspecified; E03.9 Hypothyroidism, unspecified; Z78.9 Other specified health status; F41.9 Anxiety disorder, unspecified; I10 Essential (primary) hypertension; E87.6 Hypokalemia; E78.5 Hyperlipidemia, unspecified; Z79.899 Other long term (current) drug therapy
CPT/HCPCS: 0241U; 36415; 74176; 80053; 81001; 83690; 83735; 84132; 84484; 85025; 87086; 96374; 96375; 96376; 99285; Q3014; 93268; J0696; J1885; J2405; A9270-GY; G0378